=== PATIENT | female | born 1980 | race Caucasian/White ===

== ENCOUNTER 2016-10-01 19:09 | Emergency (ER) | payer MEDICAID ==
[~2016-10-01] VITALS: Ht 180.3 cm; Wt 59.0 kg
[~2016-10-01 19:09] MED LIST: THYROID MEDS PO
[2016-10-01 19:32] VITALS: BP 143/90
--- NOTE | 2016-10-01 19:43 | NUR ---
PT TAKEN TO BED 6
--- NOTE | 2016-10-01 20:05 | NUR ---
36Y F BIB FRIEND C/O OF SHARP PAIN TO HYPOGASTRIC AREA X 2DAYS. DENIES N/V/D. PAIN 9/10 IN SCALE. V/S STABLE.
--- NOTE | 2016-10-01 20:18 | NUR ---
Dr. Anton evaluating patient at bedside.
--- NOTE | 2016-10-01 20:22 | NUR ---
Pelvic exam performed by DR. WATSON with ME at bedside for entire examination. Patient tolerated procedure WELL.. Patient assisted to position of comfort after examination.
[2016-10-01] MEDS ORDERED: AZITHROMYCIN 250 MG TAB PO ONE (20:25)
--- NOTE | 2016-10-01 21:01 | NUR ---
Patient discharged with v/s stable. Written and verbal after care instructions given and explained BY DR WATSON. Patient alert, oriented and verbalized understanding of instructions. Ambulatory with steady gait. All questions addressed prior to discharge. ID band removed. Patient advised to follow up with PMD. Rx of DOXYCYCLINE given. Patient educated on indication of medication including possible reaction and side effects. Opportunity to ask questions provided and answered.
[2016-10-01 21:02] VITALS: BP 130/78
== END 2016-10-01 21:01 | disposition home or self-care (01) ==
LOC: MED 19:09
DX: A64 Unspecified sexually transmitted disease (principal); R03.0 Elevated blood-pressure reading, without diagnosis of hypertension; Z88.0 Allergy status to penicillin; Z88.1 Allergy status to other antibiotic agents; Z88.6 Allergy status to analgesic agent

== ENCOUNTER 2021-02-17 13:54 | Emergency (ER) | payer MEDICAID, OTHER ==
[~2021-02-17] VITALS: Ht 175.3 cm; Wt 56.7 kg
[2021-02-17 14:13] VITALS: BP 134/70
[2021-02-17] MEDS ORDERED: CEPH-588 PO ×2 (14:58→15:32)
[2021-02-17] MEDS ORDERED: ONDA4TAB PO ×2 (14:58→15:32)
[2021-02-17] MEDS ORDERED: cefTRIAXone 500 MG in LIDOCAINE MPF 1% 1 ML IM ONE (15:00)
[2021-02-17] MEDS ORDERED: ONDANSETRON 4 MG ODT PO ONE (15:05)
[2021-02-17] MEDS ORDERED: cefTRIAXone 500 MG VIAL ONE (15:08)
[2021-02-17] MEDS ORDERED: LIDOCAINE MPF 1% 5 ML ONE (15:09)
--- NOTE | 2021-02-17 15:22 | NUR ---
40 Y FEMALE WITH C/O X HEMATURIA X 2 DAYS, LOWER ABD PAIN, LOWER BACK PAIN, NAUSEA X 1 WEEK. PT STATES "PAIN IS 10/10 THAT IS THROBBING/SHARP IN HER ABDOMEN/BACK AREA." PMH: KIDNEY DISEASE ALLERGIES: TRAMADOL, KETOROLAC, PENICILLIN
[2021-02-17 15:29] VITALS: BP 134/70
--- NOTE | 2021-02-17 15:29 | NUR ---
Patient discharged with v/s stable. Written and verbal after care instructions given and explained. Patient alert, oriented and verbalized understanding of instructions. Ambulatory with steady gait. All questions addressed prior to discharge. ID band removed. Patient advised to follow up with PMD. Rx of ZOFRAN AND KEFLEX given. Patient educated on indication of medication including possible reaction and side effects. Opportunity to ask questions provided and answered.
[2021-02-17 15:52] LABS: APPEARANCE,URINE CLEAR (CLEAR); BILIRUBIN,URINE NEGATIVE (NEGATIVE); BLOOD, URINE NEGATIVE (NEGATIVE); COLOR,URINE YELLOW (YELLOW); LEUKOCYTE ESTERASE ,URINE 3+ (NEGATIVE); NITRITE, URINE POSITIVE (NEGATIVE); PH,URINE 6.5 (5.0-9.0); UGLUCOSE NEGATIVE (NEGATIVE)
[2021-02-17 16:09] LABS: RBC,URINE 0-5 /HPF (0-5)
== END 2021-02-17 15:29 | disposition home or self-care (01) ==
LOC: MED 13:54
DX: N12 Tubulo-interstitial nephritis, not specified as acute or chronic (principal); E06.9 Thyroiditis, unspecified; Z87.448 Personal history of other diseases of urinary system; Z88.0 Allergy status to penicillin; Z88.8 Allergy status to other drugs, medicaments and biological substances
CPT/HCPCS: 81001; 81025; 87086; 96372; 99283; J0696; J2001; Q0162

== ENCOUNTER 2021-02-18 09:37 | Emergency (ER) | payer OTHER ==
[~2021-02-18] VITALS: Ht 175.3 cm; Wt 56.7 kg
[~2021-02-18 09:37] MED LIST changes: +CEPH-588 PO; +ONDA4TAB PO
[2021-02-18 10:13] VITALS: BP 125/76
[2021-02-18 10:40] LABS: APPEARANCE,URINE CLEAR (CLEAR); BILIRUBIN,URINE NEGATIVE (NEGATIVE); BLOOD, URINE NEGATIVE (NEGATIVE); COLOR,URINE YELLOW (YELLOW); NITRITE, URINE NEGATIVE (NEGATIVE); UGLUCOSE NEGATIVE (NEGATIVE)
[2021-02-18 10:59] LABS: LEUKOCYTE ESTERASE ,URINE 1+ (NEGATIVE); RBC,URINE 0-5 /HPF (0-5)
[2021-02-18 11:04] LABS: URIC ACID CRYSTALS,URINE RARE /HPF (None Seen)
[2021-02-18] MEDS ORDERED: HYDROcodone/APAP 5/325 MG 1 TAB TAB PO ONE (13:35)
--- NOTE | 2021-02-18 13:55 | NUR ---
PT NOT FOUND IN LOBBY
--- NOTE | 2021-02-18 14:14 | NUR ---
PT NOT FOUND IN LOBBY, 2ND TIME CALLED FOR PT
[2021-02-18 15:00] VITALS: BP 125/76
--- NOTE | 2021-02-18 15:00 | NUR ---
PT NOT FOUND, WILL BE TAKING OFF TRACKER. PA SHONDA MADE AWARE
== END 2021-02-18 15:00 | disposition left against medical advice (07) ==
LOC: MED 09:37
DX: N39.0 Urinary tract infection, site not specified (principal); E07.9 Disorder of thyroid, unspecified; Z88.0 Allergy status to penicillin; Z88.5 Allergy status to narcotic agent; Z79.899 Other long term (current) drug therapy; Z90.49 Acquired absence of other specified parts of digestive tract
CPT/HCPCS: 81001; 81025; 99283